=== PATIENT | male | born 1975 | race Caucasian/White ===

== ENCOUNTER 2020-11-05 07:48 | Inpatient (IN) | payer MEDICAID, SELFPAY ==
[2020-11-05] VITALS (17 sets, daily range): BP systolic 126–171; BP diastolic 66–97; PULSE 56–80; RESP 8–20; TEMP 35.7–36.6; O2SAT 97–100; BMI 22.8
--- NOTE | ~2020-11-05 | XR_ITS ---
XR chest 2V DATE: 11/05/2020 08:18 INDICATION: Midsternal chest pain, acute onset. Anxiety. TECHNIQUE: PA and lateral views COMPARISON: None FINDINGS: Normal heart size. No hilar or mediastinal enlargement. Azygos lobe, normal variant. No pulmonary infiltrate or consolidation, pleural effusion or pulmonary vascular congestion or pneumo thorax is detected. Included skeletal structures are unremarkable. IMPRESSION: No active cardiopulmonary disease Reviewed, dictated and finalized at location A.
--- NOTE | 2020-11-05 07:54 | ED.CHESTPAIN ---
HPI - Chest Pain General Chief Complaint: Chest Pain Stated Complaint: CP History of Present Illness HPI narrative: Substernal chest pain radiating to bilateral arms, back, and neck. Associated with SOB and diaphoresis. Given aspirin and nitroglycerin prior. Pain nearly resolved on arrival here. Related Data Home Medications Medication Instructions Recorded Confirmed losartan 50 mg PO DAILY 11/05/20 11/05/20 sodium chloride 1 g PO DAILY 11/05/20 11/05/20 Allergies Allergy/AdvReac Type Severity Reaction Status Date / Time No Known Allergies Allergy Verified 11/05/20 08:08 Review of Systems Review of Systems: All systems reviewed & are unremarkable except as noted in HPI and below Constitutional: Constitutional: Reports chills and Denies fever(s) ENT: Reports dizziness Cardiovascular: Cardiovascular: Reports as per HPI Respiratory: Respiratory: Reports as per HPI Gastrointestinal: Gastrointestinal: Reports nausea Psychiatric: Psychiatric: Reports anxiety [facility] Past Medical History Medical History HTN (hypertension), benign Tobacco abuse Family History Family History Other Hypertension Social History Social History Smoking status: Current every day smoker Spiritual care concerns: No Exam Const: General: healthy appearing, no acute distress and alert Orientation/consciousness: patient oriented x3 HENMT: Head: normal to inspection Neck: Neck: normal visual inspection and no lymphadenopathy Chest: Chest palpation & inspection: no tenderness Resp: Effort & Inspection: normal respiratory effort Auscultation: clear to auscultation bilaterally, no rales, no rhonchi and no wheezes Cardio: Jugular venous distension: no JVD Rate: regular rate Rhythm: regular rhythm Heart sounds: no murmurs GI: Inspection: non-distended GI Palp: Yes Soft to palpation and No Tenderness to palpation present (GI) Skin: General skin exam: normal color Neuro: General: patient oriented x3 and moves all extremities Speech: normal speech Extrem: General: no edema Psych: Appearance: well kempt Affect: normal affect Course Vital Signs Vital signs: Vital Signs Temperature 36.6 C 11/05/20 07:47 Pulse Rate 80 11/05/20 07:47 Respiratory Rate 14 11/05/20 07:47 Blood Pressure 150/88 H 11/05/20 07:47 Pulse Oximetry 98 11/05/20 07:47 Temperature 35.9 C L 11/05/20 17:39 Pulse Rate 67 11/05/20 18:00 Respiratory Rate 16 11/05/20 17:39 Blood Pressure 162/71 H 11/05/20 17:39 Pulse Oximetry 100 11/05/20 17:39 MDM - Chest Pain MDM Narrative Medical decision making narrative: Initial EKG shows peaked t-waves. Could be due to ischemia, but not specific. Troponin turned positive at 3 hours. Patient discussed with cardiology. They will accept the admission. He continues to be pain free, so I will hold off on anticoagulation for now. Differential Diagnosis Differential diagnosis: Likely other (NSTEMI, ) Medical Records Data Attestation: I reviewed the patient's medical records. Lab Data Attestation: I reviewed the patient's lab results. Result diagrams: 11/05/20 08:10 11/05/20 08:10 Labs: Lab Results 11/05/20 11/05/20 11/05/20 Range/Units 08:09 08:10 08:10 WBC 6.3 (4.5-10.0) K/mm3 RBC 5.69 (4.6-6.20) M/mm3 Hgb 17.7 (14.0-18.0) g/dL Hct 52.7 H (42.0-52.0) % MCV 92.6 (80-100) fl MCH 31.1 (26-34) pg MCHC 33.6 (32-36) g/dl RDW 13.4 (11.5-14.5) % Plt Count 159 (150-375) k/mm3 MPV 10.2 (7.4-10.4) fl Immature Gran % (Auto) 0.3 (0-0.5) % Neut % (Auto) 62.0 (45.5-73.1) % Lymph % (Auto) 23.0 (18.3-44.2) % [place] % (Auto) 10.9 H (2.6-8.5) % Eos % (Auto) 3.2 (0-4.4) % Baso % (Auto) 0.6 (0.2-1.2) % L
[2020-11-05] MEDS: SODIUM CHLORIDE 0.9% IV 1,000 ML 999 ML IV CONT (08:25)
[2020-11-05 08:38] LABS: Prothrombin Time 12.7 Seconds (11.1-14.7)
[2020-11-05 08:39] LABS: Partial Thromboplastin Time 27.6 SECONDS (22.3-36.8)
[2020-11-05 08:40] LABS: Alanine Aminotransferase 26 U/L (4-50); Albumin Level 4.2 g/dL (3.5-5.1); Alkaline Phosphatase 67 U/L (38-126); Anion Gap 10 mmol/L (8-16); Aspartate Amino Transferase 25 U/L (17-59); Basophils Percent Auto 0.6 % (0.2-1.2); Bilirubin,Total 0.8 mg/dL (0.2-1.3); Blood Urea Nitrogen 10 mg/dL (9-20); Calcium 8.8 mg/dL (8.4-10.2); Carbon Dioxide 20 mmol/L (22-30); Chloride 103 mmol/L (98-107); Eosinophils Absolute Auto 0.2 K/mm3 (0-0.3); Eosinophils Percent Auto 3.2 % (0-4.4); Estimated CRCL calculation 114 ml/min; Estimated Glomerular Filt Rate > 60; Glucose 110 mg/dL (65-110); Hematocrit 52.7 % (42.0-52.0); Hemoglobin 17.7 g/dL (14.0-18.0); Immature Granulocyte Absolute 0.02 K/mm3 (0.00-0.031); Immature Granulocyte Percent A 0.3 % (0-0.5); Lymphocytes Absolute Auto 1.45 K/mm3 (0.9-3.2); Magnesium 2.1 mg/dL (1.6-2.3); Mean Corpuscular HGB Conc 33.6 g/dl (32-36); Mean Corpuscular Hemoglobin 31.1 pg (26-34); Mean Corpuscular Volume 92.6 fl (80-100); Mean Platelet Volume 10.2 fl (7.4-10.4); Monocytes Absolute Auto 0.7 K/mm3 (0.1-0.6); Monocytes Percent Auto 10.9 % (2.6-8.5); Neutrophils Absolute Auto 3.9 K/mm3 (1.3-6.7); Platelet Count Result 159 k/mm3 (150-375); Potassium 3.5 mmol/L (3.4-5.0); Red Blood Count 5.69 M/mm3 (4.6-6.20); Red Cell Distribution Width 13.4 % (11.5-14.5); Sodium 133 mmol/L (137-145); White Blood Count 6.3 K/mm3 (4.5-10.0)
--- NOTE | 2020-11-05 08:45 | ECG_ITS ---
Measurements Intervals [place] Rate: 88 P: 57 RI: 148 QRS: 31 QRSD: 106 T: 50 QT: 388 QTc: 471 Interpretive Statements SINUS RHYTHM POSSIBLE LEFT ATRIAL ENLARGEMENT POSSIBLE LEFT VENTRICULAR HYPERTROPHY BORDERLINE ECG Electronically Signed On 11-05-2020 9:02:52 CDT by Mark Powell D.O.
[2020-11-05 08:46] LABS: Troponin I < 0.012 ng/mL (0.000-0.034)
--- NOTE | 2020-11-05 09:02 | ECG_ITS ---
Measurements Intervals [place] Rate: 64 P: 22 SD: 151 QRS: 15 QRSD: 106 T: 21 QT: 433 QTc: 449 Interpretive Statements SINUS RHYTHM POSSIBLE LEFT VENTRICULAR HYPERTROPHY BORDERLINE R WAVE PROGRESSION, ANTERIOR LEADS BORDERLINE ECG Electronically Signed On 11-05-2020 9:40:24 CDT by Mark Powell D.O.
[2020-11-05 11:35] LABS: Troponin I 0.081 ng/mL (0.000-0.034)
--- NOTE | 2020-11-05 13:47 | PC.NURSE ---
This patient, Jose Pereira, was admitted to IMU Room 205-02. Patient/family oriented to hospital policies and general routines including ID bracelet, bed and alarms, visiting hours, pain management, procedures, bathroom and other care routines, personal items, smoking policy, room service/diet, and visiting hours. Information on how to activate the Rapid Response Team has been discussed. Patient/Family are encouraged to report perceived risks to care and to ask questions if they do not understand what they are told or what they should do.
[2020-11-05 15:02] LABS: Troponin I 0.103 ng/mL (0.000-0.034)
--- NOTE | 2020-11-05 15:16 | ECG_ITS ---
Measurements Intervals [place] Rate: 65 P: 19 [place]: 148 QRS: 22 QRSD: 106 T: 12 QT: 421 QTc: 439 Interpretive Statements SINUS RHYTHM MINIMAL Q WAVES- INFERIOR LEADS BORDERLINE ECG Electronically Signed On 11-05-2020 19:33:34 CDT by Mark Powell D.O.
--- NOTE | 2020-11-05 15:17 | ECHO_ITS ---
Patient Info Name: Jose Pereira Age: 45 years : 1975 Gender: Male Ht: 73 in Wt: 173 lbs BSA: 2.01 m2 BP: 166 / 66 mmHg Heart Rhythm: Sinus Rhythm Technical Quality: Fair Exam Date: 11/05/2020 3:47 PM Exam Location: [facility] Pulmonary Patient Status: Inpatient Admit Date: 11/05/2020 Staff Ordering Physician: Truong Syed MD Gas Pump Attendant: Terri Escobedo RDCS Attending Provider: Truong Syed MD Referring Physician: Yahaira GUERRERO; Exam Type: CA echo doppler color flow Study Info Indications R07.89 - Other chest pain Complete two-dimensional, color flow and Doppler transthoracic echocardiogram is performed. Summary 1. Complete two-dimensional, color flow and Doppler transthoracic echocardiogram is performed. 2. Left ventricular chamber dimension is normal. 3. Left ventricular systolic function is normal, estimated at 60-65%. 4. There is mildly increased left ventricular wall thickness. 5. The left ventricular diastolic function is grade II diastolic dysfunction. 6. There is no aortic valve stenosis. 7. There is at least mild, somewhat eccentric aortic valve regurgitation with color flow turbulence which cannot be further characterized. 8. There is mild aortic valve sclerosis. 9. There is mild mitral valve regurgitation. Left Ventricle Left ventricular chamber dimension is normal. Left ventricular systolic function is normal, estimated at 60-65%. There is mildly increased left ventricular wall thickness. The left ventricular diastolic function is grade II diastolic dysfunction. Right Ventricle Right ventricular chamber dimension is normal. Right ventricular systolic function is normal. Left Atria Left atrial chamber dimension is mildly enlarged. Right Atria Right atrial chamber dimension is mildly enlarged. Aortic Valve The aortic valve is not well visualized. There is mild aortic valve sclerosis. There is no aortic valve stenosis. There is at least mild, somewhat eccentric aortic valve regurgitation with color flow turbulence which cannot be further characterized. Pulmonic Valve The pulmonic valve is not well visualized. Mitral Valve The mitral valve has normal leaflets. There is mild mitral valve regurgitation. Tricuspid Valve The tricuspid valve leaflets are normal. There is trace tricuspid valve regurgitation. No pulmonary hypertension, estimated pulmonary arterial systolic pressure is 24 mmHg. Pericardium/Pleural The pericardium appears normal. There is no pericardial effusion. Inferior Vena Cava Normal inferior vena cava with >50% collapse upon inspiration consistent with normal right atrial pressure, 5 mmHg. Aorta The aortic root size at the sinus of Valsalva is normal. Left Ventricular Outflow Tract Name Value Normal LVOT 2D LVOT Diameter 2.6 cm LVOT Doppler LVOT Peak Gradient 12 mmHg LVOT Mean Gradient 7 mmHg LVOT VTI 35 cm LVOT VTI/AV VTI Ratio 0.8 LVOT Stroke Volume 188 ml LVOT
--- NOTE | 2020-11-05 15:36 | PM.IMHP ---
H&P: HPI History of Present Illness Date/Time: Date of service: 11/05/20 15:36 Cardiology History and Physical Chief Complaint: Chest pain Narrative: Patient is a very pleasant 45-year-old male with a past medical history significant for hypertension and tobacco abuse who states he in his usual state of health when he woke early this morning with significant substernal chest pressure described as someone sitting on his chest. Chest pain radiated to bilateral upper back and into his shoulders and down his arms with heaviness. He admitted to shortness of breath, fatigue, diaphoresis. He states after waking he woke his dog and noted the symptoms persisted and after arriving back home shortly symptoms worsened and realized something was very wrong. He initially was hoping he would may be pulled a muscle as he was engage in strenuous activity lifting heavy objects the night before. He went to bed feeling quite well and denies any shortness of breath or chest pain at any time recently. He has been very active playing golf and baseball without any concerns. He states he was admitted in [place], [place] 2 weeks ago for symptomatic hyponatremia dizziness. Symptoms resolved with conservative therapy. He states he was playing golf drinking beer drinking water which they attributed to his hyponatremia. He has been compliant with medications. He denies bright red blood per rectum, melena, head injury, falls, near-syncope, syncope or palpitations. Denies fevers, chills recent sick contacts. After summoning EMS he was given 1 spray of sublingual nitroglycerin with prompt resolution of his chest pain without recurrence. EKG revealed subtle nonspecific EKG changes inferiorly. Serial troponins elevated less than 0.012, 0.081 and 0.103. Patient currently states he feels ?right as rain.? Review of Systems Review of Systems: All systems reviewed & are unremarkable except as noted in HPI and below Constitutional: Constitutional: Reports as per HPI and Reports no additional constitutional complaints Eyes: Eyes: Reports as per HPI and Reports no additional eye complaints ENT: Reports system reviewed and no additional complaints, except as documented and Reports as per HPI Cardiovascular: Cardiovascular: Reports as per HPI, Reports no additional cardiovascular complaints, Reports chest pain, Reports diaphoresis, Denies pedal edema, Denies leg edema, Reports lightheadedness and Denies palpitations Respiratory: Respiratory: Reports as per HPI, Reports no additional respiratory complaints, Denies chest congestion, Denies cough, Denies hemoptysis, Reports dyspnea on exertion and Denies wheezing Gastrointestinal: Gastrointestinal: Reports as per HPI, Reports no additional gastrointestinal complaints, Denies abdominal pain, Denies melena, Denies bloating, Denies hematochezia, Reports nausea and Denies vomiting Genitourinary: Genitourinary: Reports no additional male genitourinary complaints and Reports as per HPI Musculoskeletal: Musculoskeletal: Reports no additional musculoskeletal complaints, Reports as per HPI and Reports neck pain Integumentary/Breasts: Skin/Breast: Reports system reviewed and no additional complaints, except as docu and Reports as per HPI Neurologic: Reports system reviewed and no additional complaints, except as documented and Reports as per HPI Psychiatric: Psychiatric: Reports no additional psychiatric complaints and Reports as per HPI Endocrine: Endocrine: Reports no additional endocrine complaints and Reports as per HPI Hematologic/Lymphatic: Hematologic/Lymphatic: Reports no additional hematologic/lymphatic complaints and Reports as per HPI Allergic/Immunologic: Allergic/Immunologic: Reports no additional allergic/immunologic complaints and Reports as per HPI [facility] Past Medical History Medical History HTN (hypertension), benign Tobacco abuse Family History Family History (R
[2020-11-05 17:17] LABS: Cholesterol 153 mg/dL (0-200); HDL Direct 31 mg/dL; Triglycerides 154 mg/dL (<150)
[2020-11-05 17:28] LABS: LDL Cholesterol Direct 80 mg/dL
[2020-11-05] MEDS: ENOXAPARIN 80 MG/0.8 ML SYRINGE SUB-Q (17:50)
[2020-11-06] VITALS (15 sets, daily range): BP systolic 139–186; BP diastolic 69–79; PULSE 53–75; RESP 12–20; TEMP 35.8–36.6; O2SAT 98–100
--- NOTE | 2020-11-06 00:15 | ECG_ITS ---
Measurements Intervals [place] Rate: 54 P: 22 VT: 148 QRS: 24 QRSD: 101 T: 22 QT: 477 QTc: 456 Interpretive Statements SINUS BRADYCARDIA BASELINE WANDER- I, III BORDERLINE ECG Electronically Signed On 11-07-2020 10:55:58 CDT by Mark Powell D.O.
[2020-11-06] MEDS: NITROGLYCERIN SL 0.4 MG TABLET SUBLINGUAL (00:27)
[2020-11-06 05:20] LABS: Hematocrit 49.1 % (42.0-52.0); Mean Corpuscular HGB Conc 34.6 g/dl (32-36); Mean Corpuscular Hemoglobin 31.5 pg (26-34); Mean Corpuscular Volume 90.9 fl (80-100); Platelet Count Result 159 k/mm3 (150-375); Red Cell Distribution Width 13.2 % (11.5-14.5); White Blood Count 5.9 K/mm3 (4.5-10.0)
[2020-11-06 05:24] LABS: Anion Gap 5 mmol/L (8-16); Blood Urea Nitrogen 9 mg/dL (9-20); Calcium 8.6 mg/dL (8.4-10.2); Carbon Dioxide 22 mmol/L (22-30); Chloride 109 mmol/L (98-107); Estimated CRCL calculation 114 ml/min; Estimated Glomerular Filt Rate > 60; Glucose 94 mg/dL (65-110); Potassium 4.2 mmol/L (3.4-5.0); Sodium 136 mmol/L (137-145)
--- NOTE | 2020-11-06 07:00 | WPDMODSED ---
Moderate Sedation Note-Pt Data Patient Data Allergies Allergy/AdvReac Type Severity Reaction Status Date / Time No Known Allergies Allergy Verified 11/05/20 08:08 Home Medications Medication Instructions Recorded Confirmed Type losartan 50 mg PO DAILY 11/05/20 11/05/20 History sodium chloride 1 g PO DAILY 11/05/20 11/05/20 History Current Medications: Active Medications Aspirin (Aspirin 81 Mg Chewable Tablet) 81 mg PO DAILY@0800 LASHANDA Atorvastatin Calcium (Atorvastatin 40 Mg Tablet) 80 mg PO DAILY LASHANDA Nitroglycerin (Nitroglycerin Sl 0.4 Mg Tablet) 0.4 mg SUBLINGUAL Q5MIN PRN PRN Reason: Chest Pain Last Admin: 11/06/20 00:27 Dose: 0.4 mg Documented by: Sedation/Anesthesia: No previous sedation/anesthesia problems (including family history). [facility] Past Medical History Medical History HTN (hypertension), benign Tobacco abuse Family History Family History Other Hypertension Social History Social History Smoking status: Current every day smoker Spiritual care concerns: No Mod Sed Physical Exam Physical Exam Pre Procedural Exam: Normal: Appearance, Eyes, Ears, Nose, Neck, Throat, Airway, Lungs, Heart Size, Heart Rate, Heart Rhythm, Neuro Exam, Abdomen, Liver, Kidneys, Spleen, Breasts, Genitalia, Extremities and Skin Hours since solid foods: 8 Hours since liquid intake: 8 Mallampati Classification: class 1 Internal Medicine - PN: Obj Da Vital Signs Vital Signs: Vital Signs - 24 hr 11/05/20 08:23 11/05/20 09:02 11/05/20 10:02 Temperature Pulse Rate 74 67 73 Respiratory Rate 17 14 20 Blood Pressure 126/97 H 171/82 H 165/82 H Pulse Oximetry 98 99 100 11/05/20 11:01 11/05/20 12:00 11/05/20 13:35 Temperature Pulse Rate 70 63 60 Respiratory Rate 19 16 16 Blood Pressure 171/85 H 160/79 H 159/85 H Pulse Oximetry 100 100 97 11/05/20 14:00 11/05/20 14:25 11/05/20 16:00 Temperature 35.7 C L Pulse Rate 75 56 L 60 Respiratory Rate 20 Blood Pressure 166/66 H Pulse Oximetry 100 11/05/20 17:39 11/05/20 18:00 11/05/20 20:00 Temperature 35.9 C L 36.0 C L Pulse Rate 67 67 71 Respiratory Rate 16 18 Blood Pressure 162/71 H 158/73 H Pulse Oximetry 100 98 11/05/20 20:43 11/05/20 21:59 11/05/20 23:52 Temperature Pulse Rate 61 73 60 Respiratory Rate 18 Blood Pressure Pulse Oximetry 99 99 11/06/20 00:00 11/06/20 00:25 11/06/20 00:32 Temperature 36.6 C Pulse Rate 56 L 58 L 59 L Respiratory Rate 18 16 16 Blood Pressure 167/75 H 169/76 H 139/79 Pulse Oximetry 99 98 99 11/06/20 01:32 11/06/20 04:00 11/06/20 05:52 Temperature 36.6 C Pulse Rate 62 56 L 56 L Respiratory Rate 18 Blood Pressure 162/75 H Pulse Oximetry 99 Intake/Output Intake/Output: Intake & Output 11/03/20 11/04/20 11/05/20 11/06/20 23:59 23:59 23:59 23:59 Intake Total 1540 222 Output Total 480 Balance 1540 -258 Meds/Results Medications: Active Medications Generic Name Dose Route Start Last Admin Trade Name Freq PRN Reason Stop Dose Admin Aspirin 81 mg 11/06/20 08:00 Aspirin 81 Mg Chewable Tablet PO DAILY@0800 [facility] Atorvastatin Calcium 80 mg 11/06/20 17:00 Atorvastatin 40 Mg Tablet PO DAILY [facility] Nitroglycerin 0.4 mg 11/05/20 18:52 11/06/20 00:27 Nitroglycerin Sl 0.4 Mg Tablet SUBLINGUAL 0.4 mg Q5MIN PRN Administration Chest Pain Radiology Results: ITS Impressions Chest X-Ray 11/05/20 08:23 IMPRESSION: No active cardiopulmonary disease Labs CBC & Chem 7: 11/06/20 04:35 11/06/20 04:36 Labs: Laboratory Results - last 24 hr 11/05/20 11/05/20 11/05/20 08:09 08:10 08:10 WBC 6.3 RBC 5.69 Hgb 17.7 Hct 52.7 H MCV 92.6 MCH 31.1 MCHC 33.6 RDW 13.4 Plt Count 159 M
--- NOTE | 2020-11-06 07:00 | WPDHPUPDATE1 ---
History and Physical Update Update Date/Time: 11/06/20 0700am History and Physical has been reviewed, including an updated exam of the patient. There are NO changes in the patient's condition. Risks, benefits, and alternatives have been discussed and questions answered. Patient agrees to proceed with procedure.
--- NOTE | 2020-11-06 08:17 | WPDCARDPROC ---
Cardiac Cath Procedure Note Date of procedure:: 11/06/20 Performing physician:: Theresa Jiang MD Date of service 11/06/2020 Indication:: chest pain and elevated troponins Brief clinical history:: this is 45-year-old patient with past history of tobacco use and hypertension who presents to the hospital chest pain and was found to have minimally elevated troponins. He was brought into chemical laboratory chief to define coronary anatomy. Procedure Procedure performed:: 1-Moderate sedation that started at 7:34 a.m.and ended at 8:03 a.m. total duration 29 minutesusing 3mg of Versed and 50mcg fentanyl. The registered nurse was adrienne hull. 2-Selective left and right coronary angiogram. 3-Left heart catheterization with measurement of LVEDP and measurement of gradient across aortic valve. 4- LV angiogram. 5- ascending aorta angiogram. 6-Right common femoral arterial angiogram. 7-Deployment of 6 [place] Angio-Seal. Sedation/Medication given:: Moderate sedation. Access site:: Right common femoral artery. Estimated blood loss:: 10cc Procedure note:: After informed consent patient was brought in to chemical laboratory chief with the was draped and prepped in usual manner. Moderate sedation was given and the right groin was infiltrated using 1% lidocaine. Five [place] sheath was obtained using micropuncture needle and the modified Seldinger technique. Selective left coronary angiogram was done using JL4 catheter with the tip of the catheter placed in the left main coronary artery. Selective right coronary angiogram was done using AL1 catheter catheter with the tip of the catheter placed to the right coronary artery. before the AL1 we tried JR4 and WRP without success.After that 5 [place] pigtail catheter was advanced across the aortic valve into the left ventricle with measurement of LVEDP and measurement of gradient across aortic valve. LV angiogram was done. The ascending aorta angiogram was done as well. Right common femoral arterial angiogram was done. Then deployment 6 [place] Angio-Seal. Findings:: 1- left coronary artery is a large artery that divides into large LAD, large circumflex artery. Left main Has diffuse 10% stenosis. 2- left anterior descending artery is a large artery that runs and wraps around the apex. Has diffuse 10% stenosis at the ostium and proximally. Otherwise free of disease. Small diagonal 1-3 branches without significant disease and then medium size diagonal 4 branch without significant disease. 3- leftcircumflex artery is a large artery Without significant disease. 4- right coronary artery Has a high takeoff and anterior. No significant disease. It is dominant. 5- LVEDP was 10 mm Hg and no gradient across aortic valve. 6- LV angiogram shows ejection fraction estimation 55%. 7- Ascending aorta angiogram shows that the ascending aorta diameter is normal however there is severe aortic regurgitation. 8- opening arterial pressure was 160/60 and closing pressure was 150/60 7- right femoral artery angiogram shows no significant disease in the right common femoral artery. Conclusion:: 1- minimal coronary irregularities. 2- severe aortic regurgitation Assessment and Plan Additional Plan follow-up with Dr. Syed regarding aortic valve regurgitation.
--- NOTE | 2020-11-06 09:24 | PM.DS ---
DS: Admitting Diagnosis Admitting Diagnosis Chest pain DS: Discharge Diagnosis Discharge Diagnosis (1) NSTEMI (non-ST elevated myocardial infarction): Code(s): I21.4 - Non-ST elevation (NSTEMI) myocardial infarction Status: Acute Assessment and Plan: Continue Atorvastatin, reduce to 40mg qhs, ASA 81 mg daily. Smoking cessation, lifestyle modification. As patient was hospitalized 2 weeks ago although brief and has been active without debilitation cannot entirely exclude pulmonary embolism is possible explanation for recurrent chest pain and elevated troponin. Clinically, it seems unlikely he has pulmonary embolism as he has not been hypoxic or tachycardic. He has no lower extremity edema, palpable cords or extremity pain. Nonetheless, explanation for recurrent chest pain remains unclear unless he has transient embolism which spontaneously lysed not appreciable on coronary angiography. Will check D-dimer stat. If negative no further workup indicated. If positive while we discussed this is not confirmatory of a thromboembolic event this cannot be excluded we discussed further evaluation with CT angiography of the chest. Patient received a fair amount of contrast this morning so I would like to avoid if possible yet clarification important at this time. Continue to hydrate post cardiac catheterization and of CT angiogram of the chest PE protocol. Patient verbalized understanding and agreed with plan of care. Further recommendation to follow. If negative as above patient will be discharged home in stable improved condition follow up as an outpatient with [facility] to followed thereafter. (2) HTN (hypertension), benign: Code(s): I10 - Essential (primary) hypertension Status: Acute Assessment and Plan: Continue Losartan 50mg daily. (3) Tobacco abuse: Code(s): Z72.0 - Tobacco use Status: Acute Assessment and Plan: Smoking cessation counseling performed at length and its critical importance. Offered patient smoking cessation aid including a Nicotine patch while hospitalized at this time he states he is comfortable does not require. (4) Aortic regurgitation: Code(s): I35.1 - Nonrheumatic aortic (valve) insufficiency Status: Acute Assessment and Plan: Eccentric at least mild by echo severe by aortogram with coronary angiography. Aortic valve not well visualized on 2D echocardiogram. Outpatient transesophageal echocardiogram for further clarification. Discussed etiology including bicuspid aortic valve as a likely explanation but remains unclear. Patient otherwise asymptomatic at this time. Discussed at length management including repair and/or very likely replacement of the aortic valve depending on pathology identified. Discussed open surgical replacement versus TAVR options of mechanical versus tissue and relative limitation with regards to durability, systemic anticoagulation lifelong with mechanical valve. Patient verbalized understanding. All questions answered to his satisfaction. Further clarification needed which will be pursued as an outpatient. (5) CAD (coronary artery disease): Code(s): I25.10 - Atherosclerotic heart disease of [place] coronary artery without angina pectoris Status: Acute Assessment and Plan: Minimal nonobstructive disease 10% stenosis ostial/proximal LAD. Aspirin, statin therapy. DS: Summary Hospital Course Reason for hospitalization: Chest pain Hospital Course: Patient presented to the ED with complaint of central chest pain/pressure. Mildly elevated troponin, no acute ischemic changes on EKG. Due to his symptoms and elevated troponin it was recommended that he undergo a cardiac catheterization. He underwent a left heart catheterization this morning which did not reveal any significant coronary disease, but it was noted that he has severe aortic valve regurgitation. Recommended to follow up with Dr. Syed as an outpatien
[2020-11-06] MEDS: ASPIRIN 81 MG CHEWABLE TABLET PO (10:28)
[2020-11-06] MEDS: SODIUM CHLORIDE 1 GM TABLET PO (10:28)
[2020-11-06] MEDS: SODIUM CHLORIDE 0.9% IV 1,000 ML 125 ML IV CONT (10:29)
[2020-11-06] MEDS: LOSARTAN POTASSIUM 50 MG TABLET PO (10:29)
--- NOTE | 2020-11-06 11:22 | PM.PNCARD ---
Progress Note: A&P Assessment and Plan (1) NSTEMI (non-ST elevated myocardial infarction): Code(s): I21.4 - Non-ST elevation (NSTEMI) myocardial infarction Status: Acute Assessment and Plan: Continue Atorvastatin, reduce to 40mg qhs, ASA 81 mg daily. Smoking cessation, lifestyle modification. As patient was hospitalized 2 weeks ago although brief and has been active without debilitation cannot entirely exclude pulmonary embolism is possible explanation for recurrent chest pain and elevated troponin. Clinically, it seems unlikely he has pulmonary embolism as he has not been hypoxic or tachycardic. He has no lower extremity edema, palpable cords or extremity pain. Nonetheless, explanation for recurrent chest pain remains unclear unless he has transient embolism which spontaneously lysed not appreciable on coronary angiography. Will check D-dimer stat. If negative no further workup indicated. If positive while we discussed this is not confirmatory of a thromboembolic event this cannot be excluded we discussed further evaluation with CT angiography of the chest. Patient received a fair amount of contrast this morning so I would like to avoid if possible yet clarification important at this time. Continue to hydrate post cardiac catheterization and of CT angiogram of the chest PE protocol. Patient verbalized understanding and agreed with plan of care. Further recommendation to follow. If negative as above patient will be discharged home in stable improved condition follow up as an outpatient with [facility] to followed thereafter. (2) Aortic regurgitation: Code(s): I35.1 - Nonrheumatic aortic (valve) insufficiency Status: Acute Assessment and Plan: Eccentric at least mild by echo severe by aortogram with coronary angiography. Aortic valve not well visualized on 2D echocardiogram. Outpatient transesophageal echocardiogram for further clarification. Discussed etiology including bicuspid aortic valve as a likely explanation but remains unclear. Patient otherwise asymptomatic at this time. Discussed at length management including repair and/or very likely replacement of the aortic valve depending on pathology identified. Discussed open surgical replacement versus TAVR options of mechanical versus tissue and relative limitation with regards to durability, systemic anticoagulation lifelong with mechanical valve. Patient verbalized understanding. All questions answered to his satisfaction. Further clarification needed which will be pursued as an outpatient. (3) CAD (coronary artery disease): Code(s): I25.10 - Atherosclerotic heart disease of [place] coronary artery without angina pectoris Status: Acute Assessment and Plan: Minimal nonobstructive disease 10% stenosis ostial/proximal LAD. Aspirin, statin therapy. (4) HTN (hypertension), benign: Code(s): I10 - Essential (primary) hypertension Status: Acute Assessment and Plan: Continue Losartan 50mg daily. (5) Tobacco abuse: Code(s): Z72.0 - Tobacco use Status: Acute Assessment and Plan: Smoking cessation counseling performed at length and its critical importance. Offered patient smoking cessation aid including a Nicotine patch while hospitalized at this time he states he is comfortable does not require. Additional Plan follow-up with Dr. Syed regarding aortic valve regurgitation. Subjective Date/time seen: Date of service: 11/06/20 11:22 Follow-up for chest pain, elevated troponin, aortic regurgitation Underwent left heart catheterization this morning which revealed minimal nonobstructive CAD 10% diffuse stenosis proximally in the LAD. Had brief chest pain last night resolved with sublingual nitroglycerin once again. Severe aortic regurgitation noted on aortogram. Review of Systems Review of Systems: All systems reviewed & are unremarkable except as noted in HPI and below Constitutional: Constitutio
[2020-11-06 12:55] LABS: D Dimer 0.27 ug/mL (<0.48)
--- NOTE | 2020-11-06 14:35 | PC.NURSE ---
Patient discharged to home at 1430. Education was provided on home meds and MD instructions. Patient had no further questions at this time.
== END 2020-11-06 14:30 | disposition home or self-care (01) | DRG 190 ==
LOC: ANHED 08:23 → ANHIMU 15:09
PROVIDERS: Admitting Provider Internal Medicine Cardiovascular Disease; Emergency Provider Emergency Medicine; Visit Provider Internal Medicine Cardiovascular Disease
PROC: 4A023N7 Measurement of Cardiac Sampling and Pressure, Left Heart, Percutaneous Approach (ICD-10-PCS; CPT 93452; principal; 2020-11-06 07:30)
PROC: 4A023N7 Measurement of Cardiac Sampling and Pressure, Left Heart, Percutaneous Approach (ICD-10-PCS; 2020-11-06 07:30)
DX: I21.4 Non-ST elevation (NSTEMI) myocardial infarction (principal); I25.10 Atherosclerotic heart disease of native coronary artery without angina pectoris; I35.1 Nonrheumatic aortic (valve) insufficiency; I10 Essential (primary) hypertension; F17.200 Nicotine dependence, unspecified, uncomplicated; Z79.899 Other long term (current) drug therapy
CPT/HCPCS: 36415; 71046; 80048; 80053; 80061; 83735; 84484; 85025; 85027; 85380; 85610; 85730; 93005; 93306; 93458; 96360; 99291; A9270; C1760; C1887; C1894; G0269; J1644; J1650; J2250; J3010; J7030; J7040

== ENCOUNTER → 2020-12-12 01:08 | Outpatient (CLI) | payer OTHER, SELFPAY ==
[2020-12-12 18:08] LABS: SARS-CoV-2 RNA PCR Negative
== END ==
PROVIDERS: Visit Provider Internal Medicine Cardiovascular Disease
DX: Z01.812 Encounter for preprocedural laboratory examination (principal); Z20.822 Contact with and (suspected) exposure to COVID-19
CPT/HCPCS: C9803; U0003; U0005

== ENCOUNTER 2020-12-16 01:42 | Day surgery (SDC) | payer OTHER, SELFPAY ==
[2020-12-16] VITALS (11 sets, daily range): BP systolic 148–192; BP diastolic 83–110; PULSE 75–104; RESP 12–18; TEMP 36.1; O2SAT 97–100; BMI 23.8
--- NOTE | 2020-12-16 11:00 | WPDHPUPDATE1 ---
History and Physical Update Update Date/Time: 12/16/20 11:00 History and Physical has been reviewed, including an updated exam of the patient. There are NO changes in the patient's condition. Risks, benefits, and alternatives have been discussed and questions answered. Patient agrees to proceed with procedure.
--- NOTE | 2020-12-16 11:00 | WPDMODSED ---
Moderate Sedation Note-Pt Data Patient Data Diagnosis: Severe aortic regurgitation Present Complaint: none Procedure to be performed/Plan: transesophageal echocardiogram Allergies Allergy/AdvReac Type Severity Reaction Status Date / Time No Known Allergies Allergy Verified 11/13/20 15:39 Home Medications Medication Instructions Recorded Confirmed Type losartan 50 mg PO DAILY 11/05/20 12/16/20 History sodium chloride 1 g PO DAILY 11/05/20 12/16/20 History aspirin [Children's Aspirin] 81 mg PO DAILY@0800 30 Days #30 11/06/20 12/16/20 Rx tablet atorvastatin 40 mg PO DAILY #30 tablet 11/06/20 12/16/20 Rx Current Medications: Active Medications Lidocaine HCl (Lidocaine Hcl 2% Visc Soln 15 Ml Udc) 20 ml PO ONCE ONE Stop: 12/16/20 11:31 Sedation/Anesthesia: No previous sedation/anesthesia problems (including family history). [facility] Past Medical History Medical History Aortic regurgitation CAD (coronary artery disease) HTN (hypertension), benign Tobacco abuse Family History Family History Other Hypertension Social History Social History Smoking status: Current every day smoker Spiritual care concerns: No Mod Sed Physical Exam Physical Exam Pre Procedural Exam: Normal: Appearance, Eyes, Ears, Nose, Neck ( supple, normal range of motion), Throat ( posterior hypopharynx clear, nonerythematous), Airway ( normal anatomy, no obstruction ), Lungs ( clear to auscultation bilaterally), Heart Size, Heart Rate, Heart Rhythm ( diastolic murmur), Neuro Exam, Abdomen, Liver, Extremities and Skin Hours since solid foods: 12 Hours since liquid intake: 12 Mallampati Classification: class III Internal Medicine - PN: Obj Da Vital Signs Vital Signs: Vital Signs - 24 hr 12/16/20 10:35 Temperature 36.1 C L Pulse Rate 76 Respiratory Rate 18 Blood Pressure 171/93 H Pulse Oximetry 100 Meds/Results Medications: Active Medications Generic Name Dose Route Start Last Admin Trade Name Freq PRN Reason Stop Dose Admin Lidocaine HCl 20 ml 12/16/20 11:30 Lidocaine Hcl 2% Visc Soln 15 Ml Udc PO 12/16/20 11:31 ONCE ONE ASA Classification/Sedation ASA Classification/Sedation ASA Class: III Emergent: No Risks: Risks, benefits and alternatives explained and patient/family accepted plan for sedation. Patient re-evaluated immediately prior to sedation.
--- NOTE | 2020-12-16 11:46 | WPDTEECHO ---
[facility] TransEsophageal Echocardiogram Date of procedure: 12/16/20 Procedure Type: transesophageal echocardiogram Diagnosis: severe aortic regurgitation Indications: severe aortic regurgitation Image Quality: acceptable Findings: Brief history present illness: Patient is a pleasant 45-year-old male who presented with fatigue shortness of breath with mild troponin elevation who underwent left heart catheterization which revealed mild nonobstructive CAD and incidental discovery of highly eccentric aortic regurgitation noted to be severe on coronary angiography referred for transesophageal echocardiogram for further evaluation. Procedure in detail: After verbal and written informed consent was obtained the patient risks, benefits, and alternatives explained in detail the patient agreed to proceed with the plan of care as outlined above. The patient was evaluated at bedside in the [facility] procedure room. The posterior oropharynx, neck, and jaw angle all within normal limits on examination. Lungs were clear to auscultation. See pre-sedation note for further details The patient was then placed in the appropriate 30 to 45 degree angle supine position at a slight left lateral decubitus position. Patient was monitored throughout the study with telemetry, oxygen saturation, end-tidal CO2 monitoring, blood pressure, heart rate, and respirations. The posterior hypopharynx was then locally anesthetized using repeated administration of Hurricaine spray as well as gargled viscous lidocaine. After local anesthetic of the posterior hypopharynx was achieved and the oral bite block placed, moderate sedation was administered. After confirmation of adequate moderate sedation, the transesophageal echocardiogram probe was advanced through the oral bite block into the posterior hypopharynx and into the esophagus easily and without complication. Multiple, multiplanar echocardiographic images were obtained in multiple standard re- projections. Pulsed wave, continuous-wave, and color-flow Doppler were utilized in conjunction with this study. At the conclusion of the study, the transesophageal echocardiogram probe was removed easily and without complication. The patient tolerated the procedure well without difficulty. Patient was in sinus rhythm throughout the study. Moderate Sedation/Anesthesia administration: Patient reports no prior problems with sedation/anesthesia. Please see pre-sedation noted for physical examination documentation. As noted above, after adequate local anesthesia of the posterior hypopharynx was achieved, a total of 5 mg intravenous Versed and a total of 125 mcg intravenous Fentanyl in multiple divided doses was administered for moderate sedation. Sedation start time was 1107 and end time was 1138 for a total intra-service/procedure face-face time of 21 minutes. Sedation was administered by a qualified/certified observer Anabelle Martinez RN under my supervision with intra-procedure [id number] observation and management throughout the entirety of the procedure. There were no other issues or complications and patient tolerated the procedure well. See post-anesthesia documentation. FINDINGS: LEFT VENTRICLE: Size and systolic function were within normal limits without wall motion abnormalities with ejection fraction of 60-65%. RIGHT VENTRICLE: Size and systolic function within normal limits. LEFT ATRIUM: Normal size. RIGHT ATRIUM: Normal size. INTERATRIAL SEPTUM: Interatrial septum is anatomically normal without evidence of shunt with color-flow Doppler nor with injection of agitated saline with and without Valsalva. MITRAL VALVE: Mitral valve is anatomically normal with preserved leaflet excursion and mild regurgitation. AORTIC VALVE: The aortic valve was an anatomically normal 3 leaflet structure with mild sclerosis and thickening with preserved leaflet excursion. No mobile vegetation identified. Severe aortic regurgitation is appreciated extend
== END 2020-12-16 12:15 | disposition home or self-care (01) ==
PROVIDERS: Visit Provider Internal Medicine Cardiovascular Disease
PROC: (CPT 93312; principal; 2020-12-16 11:30)
DX: I35.1 Nonrheumatic aortic (valve) insufficiency (principal); I25.10 Atherosclerotic heart disease of native coronary artery without angina pectoris; I10 Essential (primary) hypertension; E78.5 Hyperlipidemia, unspecified; Z79.82 Long term (current) use of aspirin
CPT/HCPCS: 93312; 93320; 93325; J2250; J3010; J7040

== ENCOUNTER 2021-04-03 21:14 | Emergency (ER) | payer OTHER, SELFPAY ==
--- NOTE | ~2021-04-03 | CT_ITS ---
EXAMINATION: CTA chest PE abdomen pel DATE: 04/04/2021 11:18 WARP KNITTER INDICATION: Chest pain TECHNIQUE: Computed tomographic angiography (CTA) of the chest, abdomen, and pelvis was performed wit hout and with 100 mL Omnipaque-350 intravenous contrast. The dose-length product was 1374.36 mGy-cm. Maximum intensity projection 3D-reconstructions of the aorta and other arteries were constructed by rosemary martinez technologist on a separate workstation. Automated exposure control and iterative reconstruction te riccardo were employed. COMPARISON: None. FINDINGS: CHEST CTA: Study is limited due to motion artifact limiting evaluation for pulmonary embolism in segmental and s ubsegmental pulmonary arteries. No central pulmonary embolism. Small pericardial effusion. There are changes of aortic valve replacement. Status post median sternotomy for CABG. Moderate size hiatal her huma. There is emphysema. There are patchy groundglass opacities in the right upper lobe with more foc al consolidation in the right lower lobe, most likely pneumonia. No endobronchial lesions. No pneumot horax. ABDOMEN AND PELVIS CTA: Gallstones. Splenomegaly. The liver, pancreas, adrenal glands are unremarkable. There are bilateral r enal cysts. No hydronephrosis or renal stones identified. Small fat-containing right inguinal hernia. No abnormal pelvic masses or fluid collections. Nonobstructive bowel gas pattern. IMPRESSION: 1. Right upper and lower lobe airspace disease, compatible with pneumonia. 2: No large central pulmonary embolism. Evaluation of peripheral arteries limited by motion. 3: Cholelithiasis. 4: Splenomegaly. Reviewed, dictated and finalized at location A. KNITTER IMPRESSION: 1. Right upper and lower lobe airspace disease, compatible with pneumonia. 2: No large central pulmonary embolism. Evaluation of peripheral arteries limit ed by motion. 3: Cholelithiasis. 4: Splenomegaly.
[2021-04-03 21:21] VITALS: BP 192/104; PULSE 84; RESP 20; TEMP 36.4; O2SAT 97
[2021-04-03 21:31] VITALS: BP 166/101; PULSE 88; RESP 14; O2SAT 97
[2021-04-03] MEDS: ONDANSETRON INJ 4 MG/2 ML VIAL IV PUSH (21:45)
[2021-04-03] MEDS: HYDROmorphone HCL INJ (*CRX) 1 MG/ML SYR IV PUSH ×2 (21:45→23:34)
[2021-04-03] MEDS: SODIUM CHLORIDE 0.9% IV 1,000 ML 999 ML IV CONT (21:48)
[2021-04-03 21:52] VITALS: BP 156/92; PULSE 80; RESP 16; O2SAT 94
[2021-04-03 22:07] LABS: Basophils Absolute Auto 0.1 K/mm3 (0.0-0.1); Basophils Percent Auto 0.7 % (0.2-1.2); Eosinophils Absolute Auto 0.3 K/mm3 (0-0.3); Eosinophils Percent Auto 3.5 % (0-4.4); Hematocrit 38.8 % (42.0-52.0); Hemoglobin 12.9 g/dL (14.0-18.0); Immature Granulocyte Absolute 0.03 K/mm3 (0.00-0.031); Immature Granulocyte Percent A 0.4 % (0-0.5); Lymphocytes Absolute Auto 3.11 K/mm3 (0.9-3.2); Lymphocytes Percent Auto 37.5 % (18.3-44.2); Mean Corpuscular HGB Conc 33.2 g/dl (32-36); Mean Corpuscular Hemoglobin 29.4 pg (26-34); Mean Corpuscular Volume 88.4 fl (80-100); Mean Platelet Volume 10.7 fl (7.4-10.4); Monocytes Absolute Auto 0.8 K/mm3 (0.1-0.6); Monocytes Percent Auto 10.1 % (2.6-8.5); Neutrophils Percent Auto 47.8 % (45.5-73.1); Platelet Count Result 245 k/mm3 (150-375); Red Blood Count 4.39 M/mm3 (4.6-6.20); Red Cell Distribution Width 13.3 % (11.5-14.5); White Blood Count 8.3 K/mm3 (4.5-10.0)
[2021-04-03 22:17] LABS: INR 2.5; Partial Thromboplastin Time 41.2 SECONDS (22.3-36.8); Prothrombin Time 26.2 Seconds (11.1-14.7)
[2021-04-03 22:21] VITALS: BP 161/97; PULSE 80; RESP 21; O2SAT 97
[2021-04-03 22:31] VITALS: BP 155/92; PULSE 67; RESP 13; O2SAT 97
[2021-04-03 22:35] LABS: Lactic Acid Reflex 0.8 mmol/L (0.7-2.1)
[2021-04-03 22:38] LABS: Alanine Aminotransferase 21 U/L (4-50); Albumin Level 3.8 g/dL (3.5-5.1); Alkaline Phosphatase 98 U/L (38-126); Anion Gap 7 mmol/L (8-16); Aspartate Amino Transferase 47 U/L (17-59); Bilirubin,Total 0.7 mg/dL (0.2-1.3); Blood Urea Nitrogen 12 mg/dL (9-20); Calcium 8.6 mg/dL (8.4-10.2); Carbon Dioxide 28 mmol/L (22-30); Chloride 104 mmol/L (98-107); Estimated CRCL calculation 98 ml/min; Estimated Glomerular Filt Rate > 60; Glucose 93 mg/dL (65-110); Lipase 36 U/L (23-300); Magnesium 1.9 mg/dL (1.6-2.3); Potassium 4.2 mmol/L (3.4-5.0); Sodium 139 mmol/L (137-145)
[2021-04-03 22:49] LABS: Troponin I < 0.012 ng/mL (0.000-0.034)
--- NOTE | 2021-04-03 23:25 | PC.NURSE ---
Per Lena WILLIS w/ bedside report - pt is in CT at this time. Unable to void for urine sample as of yet. Fluids initiated. Will attempt sample collection upon return from CT.
--- NOTE | 2021-04-03 23:26 | ED.GENADULT ---
HPI - General Adult General Chief complaint: Abdominal Pain Stated complaint: ABD PAIN Time Seen by Provider: 04/03/21 21:28 History of Present Illness HPI narrative: Patient is a 45-year-old gentleman epigastric abdominal pain. The patient reports that he started having pain in the upper parts of his abdomen does radiate into the lower chest. Patient states that it hurts so bad that it makes it hard to breathe the patient states that he recently had a valve replacement is on Coumadin. Patient reports symptoms or not improved by anything nor they worsened by anything. Related Data Home Medications Medication Instructions Recorded Confirmed losartan 50 mg PO DAILY 11/05/20 12/16/20 sodium chloride 1 g PO DAILY 11/05/20 12/16/20 Allergies Allergy/AdvReac Type Severity Reaction Status Date / Time No Known Allergies Allergy Verified 11/13/20 15:39 Review of Systems Review of Systems: A 10 system review of systems was completed on the patient and is negative except for what is stated in the HPI. Nursing and ancillary documentation was reviewed. [facility] Past Medical History Medical History Aortic regurgitation CAD (coronary artery disease) HTN (hypertension), benign Tobacco abuse Family History Family History Other Hypertension Social History Social History Smoking status: Current every day smoker Spiritual care concerns: No Exam Narrative: GENERAL: Well-appearing, well-nourished, and in no acute distress. HEAD: Normocephalic, atraumatic. EYES: PERRLA and EOMI. ENT: Nares clear, no rhinorrhea or epistaxis. Mucous membranes moist. NECK: Supple. CHEST: Clear to auscultation. No respiratory distress. HEART: Regular rate and rhythm. No murmur heard. Normal peripheral pulses. ABDOMEN: Soft, nontender, nondistended, normal active bowel sounds. EXTREMITIES: Normal range of motion. No edema. SKIN: Warm, dry, no rash. NEURO: No focal deficits. Alert and oriented x3. PSYCH: Normal mood and affect. Course Vital Signs Vital signs: Vital Signs Temperature 36.4 C 04/03/21 21:21 Pulse Rate 84 04/03/21 21:21 Respiratory Rate 20 04/03/21 21:21 Blood Pressure 192/104 H 04/03/21 21:21 Pulse Oximetry 97 04/03/21 21:21 Temperature 36.4 C 04/03/21 21:21 Pulse Rate 71 04/04/21 00:05 Respiratory Rate 15 04/04/21 00:05 Blood Pressure 154/89 H 04/04/21 00:05 Pulse Oximetry 98 04/04/21 00:05 Medical Decision Making Vital Signs Vital Signs: Vital Signs Temperature 36.4 C 04/03/21 21:21 Pulse Rate 84 04/03/21 21:21 Respiratory Rate 20 04/03/21 21:21 Blood Pressure 192/104 H 04/03/21 21:21 Pulse Oximetry 97 04/03/21 21:21 Temperature 36.4 C 04/03/21 21:21 Pulse Rate 71 04/04/21 00:05 Respiratory Rate 15 04/04/21 00:05 Blood Pressure 154/89 H 04/04/21 00:05 Pulse Oximetry 98 04/04/21 00:05 Lab Data Result diagrams: 04/03/21 21:59 04/03/21 22:21 Labs: Lab Results 04/03/21 04/03/21 04/03/21 Range/Units 21:59 21:59 21:59 WBC 8.3 (4.5-10.0) K/mm3 RBC 4.39 L (4.6-6.20) M/mm3 Hgb 12.9 L D (14.0-18.0) g/dL Hct 38.8 L (42.0-52.0) % MCV 88.4 (80-100) fl MCH 29.4 (26-34) pg MCHC 33.2 (32-36) g/dl RDW 13.3 (11.5-14.5) % Plt Count 245 D (150-375) k/mm3 MPV 10.7 H (7.4-10.4) fl Immature Gran % (Auto) 0.4 (0-0.5) % Neut % (Auto) 47.8 (45.5-73.1) % Lymph % (Auto) 37.5 (18.3-44.2) % Noble % (Auto) 10.1 H (2.6-8.5) % Eos % (Auto) 3.5 (0-4.4) % Baso % (Auto) 0.7 (0.2-1.2) % Lymph # (Auto) 3.11 (0.9-3.2) K/mm3 Noble # (Auto) 0.8 H (0.1-0.6) K/mm3 Eos # (Auto) 0.3 (0-0.3) K/mm3 Baso # (Auto) 0.1 (0.0-0.1) K/mm3 Abs Immat Gran (auto)
--- NOTE | 2021-04-03 23:27 | PC.NURSE ---
Care turned over to ALBA Duenas. All questions answered at this time.
[2021-04-04 00:05] VITALS: BP 154/89; PULSE 71; RESP 15; O2SAT 98
[2021-04-04 00:49] LABS: Add Urine Microscopic? YES; Appearance Urine Clear (Clear); Bilirubin Urine Negative (Negative); Blood Urine Negative (Negative); Color Urine Yellow (Yellow); Glucose Urine UA Negative (Negative); Ketones Urine Negative (Negative); Leukocyte Esterase Ur Negative LEU/UL (Negative); Mucus Urine Moderate /lpf; Nitrate Urine Negative (Negative); Protein Urine Negative (Negative); RBC Urine 0-2 /hpf (0-2); WBC Urine 0-3 /hpf
[2021-04-04 00:53] LABS: Specific Grav Ur > 1.060 (1.001-1.035)
[2021-04-04 01:11] LABS: SARS-CoV-2 RNA PCR Negative
[2021-04-04 01:18] VITALS: BP 147/94; PULSE 64; RESP 17; O2SAT 96
== END 2021-04-04 01:30 | disposition home or self-care (01) ==
PROVIDERS: Emergency Provider Emergency Medicine
DX: J18.9 Pneumonia, unspecified organism (principal); Z20.822 Contact with and (suspected) exposure to COVID-19; I35.1 Nonrheumatic aortic (valve) insufficiency; I25.10 Atherosclerotic heart disease of native coronary artery without angina pectoris; I10 Essential (primary) hypertension; Z79.01 Long term (current) use of anticoagulants; Z95.2 Presence of prosthetic heart valve; F17.200 Nicotine dependence, unspecified, uncomplicated; R16.1 Splenomegaly, not elsewhere classified; K80.20 Calculus of gallbladder without cholecystitis without obstruction
CPT/HCPCS: 36415; 71275; 74177; 80053; 81001; 83605; 83690; 83735; 84484; 85025; 85610; 85730; 96361; 96374; 96375; 96376; 99284; C9803; J1170; J2405; J7030; Q9967; U0003; U0005

== ENCOUNTER 2021-06-23 18:09 | Emergency (ER) | payer OTHER, SELFPAY ==
[2021-06-23] VITALS (8 sets, daily range): BP systolic 112–151; BP diastolic 69–89; PULSE 65–97; RESP 18; TEMP 36.6; O2SAT 96–100
--- NOTE | ~2021-06-23 | CT_ITS ---
EXAMINATION: CT brain wo con DATE: 06/23/2021 20:09 INDICATION: Dizziness. TECHNIQUE: Computed tomography (CT) of the head was performed without intravenous contrast. The mA wa s adjusted according to patient size. Iterative reconstruction technique was employed. The dose-lengt h product was 605.33 mGy-cm. COMPARISON: None FINDINGS: There is no intracranial hemorrhage, acute infarction, or abnormal intracranial mass lesion . The ventricles are normal in size. The orbits are normal. There is mild mucosal thickening in the p aranasal sinuses. The mastoid air cells are normal. There is right posterior superior scalp soft tiss ue swelling. IMPRESSION: 1. Normal brain. Reviewed, dictated and finalized at location A. IMPRESSION: 1. Normal brain.
--- NOTE | 2021-06-23 19:22 | ED.ANXIETY ---
HPI - Anxiety General Chief Complaint: Anxiety Stated Complaint: Anxiety - panic attack with hyperventilation Time Seen by Provider: 06/23/21 19:22 Source: patient Mode of arrival: EMS Limitations: no limitations History of Present Illness HPI narrative: Patient is a 45-year-old male who presents the ED via EMS with report of anxiety. Patient reports a long history of anxiety and anxiety attacks. He states he used to be on medication for this (effexor) but had been feeling better and has not been on any anxiety medication in several months. Over the last 4 to 6 weeks he reports having increased anxiety, particularly around issues at work. Tonight, he reports he was in his garage with his puppy talking to someone on the phone. He states his puppy wanted to go inside and began barking because of the rain. He then began to feel very anxious. He states the combination of being on the phone with someone and his puppy becoming scared of the rain made him feel very overwhelmed. He is not sure exactly why this made him feel overwhelmed. He took the puppy inside and began walking up the stairs when he began feeling very dizzy and lightheaded. He states he was having difficulty breathing and hyperventilating at that time. He did fall and hit his head against the wall on his stairs, but did not lose consciousness. He then called EMS. He states that soon as the ambulance arrived he felt immediate relief and felt better. He does report he was familiar with the EMS he had been to his house several times for similar anxiety attacks which have presented similarly with dizziness and trouble breathing. Patient does have a history of an NSTEMI and aortic valve replacement in 2020, but he states these symptoms do not feel similar to his HI. He denied having any chest pain or palpitations today. No headache, nausea, vomiting, fever, chills, weakness, vision changes. Patient denies any SI, HI, AVH. Patient is on warfarin due to history of aortic valve replacement. Has not missed any doses. Patient is a former cigarette smoker, but does mention he smoked a cigar tonight. He also had 1 beer and 1 vodka tonic. No drug use. Related Data Home Medications Medication Instructions Recorded Confirmed losartan 50 mg PO DAILY 11/05/20 12/16/20 sodium chloride 1 g PO DAILY 11/05/20 12/16/20 Allergies Allergy/AdvReac Type Severity Reaction Status Date / Time No Known Allergies Allergy Verified 11/13/20 15:39 Review of Systems Review of Systems: CONSTITUTIONAL: Denies fever, chills, or sweats. EYES: Denies visual changes. CARDIOVASCULAR: Denies chest pain, palpitations. RESPIRATORY: Reports shortness of breath and hyperventilation. Denies cough. GASTROINTESTINAL: Denies nausea, vomiting. MUSCULOSKELETAL: Denies back pain. NEUROLOGIC: Reports dizziness, lightheadedness, head injury. Denies LOC, headache, numbness, or weakness. PSYCHIATRIC: Reports anxiety. Denies SI, HI, AVH, depression. All systems reviewed & are unremarkable except as noted in HPI and below PMFSH Past Medical History Medical History Aortic regurgitation CAD (coronary artery disease) HTN (hypertension), benign Hypercholesterolemia Tobacco abuse Surgical History Surgical History H/O aortic valve replacement Family History Family History Other Hypertension Social History Social History Smoking status: Former smoker Tobacco type: cigars Alcohol intake: current Spiritual care concerns: No Exam Narrative: GENERAL: Well appearing, well-nourished, non-toxic, in no acute distress. HEAD: Normocephalic, atraumatic. No scalp tenderness to palpation. EYES: PERRL/EOMI, conjunctivae clear bilaterally. No nystagmus. NECK: Supple. No adenopathy, n
--- NOTE | 2021-06-23 19:59 | ECG_ITS ---
Measurements Intervals [place] Rate: 66 P: 42 FL: 165 QRS: 52 QRSD: 102 T: 50 QT: 412 QTc: 434 Interpretive Statements SINUS RHYTHM NORMAL ECG COMPARED TO ECG 11/06/2020 00:24:30 HEART RATE HAS INCREASED Electronically Signed On 06-24-2021 15:36:39 CDT by Truong Syed M.D.
--- NOTE | 2021-06-23 20:00 | PC.NURSE ---
Pt to imaging at this time.
[2021-06-23] MEDS: SODIUM CHLORIDE 0.9% IV 1,000 ML 999 ML IV CONT (20:31)
[2021-06-23 20:34] LABS: Basophils Absolute Auto 0.1 K/mm3 (0.0-0.1); Basophils Percent Auto 0.7 % (0.2-1.2); Eosinophils Absolute Auto 0.2 K/mm3 (0-0.3); Hematocrit 44.2 % (42.0-52.0); Immature Granulocyte Absolute 0.02 K/mm3 (0.00-0.031); Immature Granulocyte Percent A 0.2 % (0-0.5); Lymphocytes Absolute Auto 2.47 K/mm3 (0.9-3.2); Lymphocytes Percent Auto 27.8 % (18.3-44.2); Mean Corpuscular HGB Conc 33.9 g/dl (32-36); Mean Corpuscular Hemoglobin 29.4 pg (26-34); Mean Corpuscular Volume 86.5 fl (80-100); Mean Platelet Volume 9.8 fl (7.4-10.4); Monocytes Absolute Auto 0.6 K/mm3 (0.1-0.6); Monocytes Percent Auto 7.2 % (2.6-8.5); Neutrophils Absolute Auto 5.5 K/mm3 (1.3-6.7); Neutrophils Percent Auto 62.1 % (45.5-73.1); Platelet Count Result 236 k/mm3 (150-375); Red Blood Count 5.11 M/mm3 (4.6-6.20); Red Cell Distribution Width 14.6 % (11.5-14.5); White Blood Count 8.9 K/mm3 (4.5-10.0)
[2021-06-23 20:36] LABS: Appearance Urine Clear (Clear); Bilirubin Urine Negative (Negative); Blood Urine Negative (Negative); Glucose Urine UA Negative (Negative); Ketones Urine Negative (Negative); Leukocyte Esterase Ur Negative LEU/UL (Negative); Nitrate Urine Negative (Negative); Protein Urine Negative (Negative); Urobilinogen Urine 0.2 mg/dL (<2.0); pH Urine 6.5 (5.0-9.0)
[2021-06-23 20:39] LABS: Add Urine Microscopic? NO; Color Urine Colorless (Yellow)
[2021-06-23 20:55] LABS: Alanine Aminotransferase 17 U/L (4-50); Albumin Level 4.6 g/dL (3.5-5.1); Alkaline Phosphatase 89 U/L (38-126); Anion Gap 10 mmol/L (8-16); Aspartate Amino Transferase 28 U/L (17-59); Bilirubin,Total 0.6 mg/dL (0.2-1.3); Blood Urea Nitrogen 6 mg/dL (9-20); Calcium 8.6 mg/dL (8.4-10.2); Carbon Dioxide 26 mmol/L (22-30); Chloride 103 mmol/L (98-107); Estimated CRCL calculation 114 ml/min; Estimated Glomerular Filt Rate > 60; Glucose 96 mg/dL (65-110); Potassium 3.9 mmol/L (3.4-5.0); Sodium 139 mmol/L (137-145)
[2021-06-23 21:06] LABS: Troponin I < 0.012 ng/mL (0.000-0.034)
[2021-06-23 21:18] LABS: INR 3.3; Prothrombin Time 32.6 Seconds (11.1-14.7)
[2021-06-23 21:19] LABS: Partial Thromboplastin Time 52.5 SECONDS (22.3-36.8)
== END 2021-06-23 22:28 | disposition home or self-care (01) ==
PROVIDERS: Physician Assistant; Emergency Provider Emergency Medicine
DX: R42 Dizziness and giddiness (principal); F41.9 Anxiety disorder, unspecified; I10 Essential (primary) hypertension; I25.10 Atherosclerotic heart disease of native coronary artery without angina pectoris; E78.5 Hyperlipidemia, unspecified; Z87.891 Personal history of nicotine dependence
CPT/HCPCS: 36415; 70450; 80053; 81003; 84484; 85025; 85610; 85730; 93005; 96360; 99284; J7030

== ENCOUNTER 2024-05-19 06:44 | Emergency (ER) | payer OTHER, SELFPAY ==
[2024-05-19] VITALS (21 sets, daily range): BP systolic 128–162; BP diastolic 77–92; PULSE 93–139; RESP 12–31; TEMP 38; O2SAT 91–98
--- NOTE | ~2024-05-19 | XR_ITS ---
EXAMINATION: XR chest 1V portable DATE: 05/19/2024 07:19 INDICATION: Shortness of breath. TECHNIQUE: A single frontal view of the chest was obtained. COMPARISON: Chest 2 views 11/05/2020. FINDINGS: There is no pneumonia, pleural effusion, or pneumothorax. The heart size is normal. Median sternotomy wires are noted. IMPRESSION: 1. No acute cardiopulmonary disease. Reviewed, dictated and finalized at location A. MOTIVE ENG[employer]
--- NOTE | 2024-05-19 06:47 | ECG_ITS ---
Test Date: 2024-05-19 06:49:51 Measurements Intervals [place] Rate: 133 P: 34 CT: 138 QRS: 61 QRSD: 92 T: 38 QT: 289 QTc: 430 Interpretive Statements SINUS TACHYCARDIA DELAYED PRECORDIAL R/S TRANSITION BASELINE ARTIFACT- I, III, AVL, AVF ABNORMAL ECG No previous ECG available for comparison Electronically Signed On 05-19-2024 07:08:[address] SQL DEVELOPER by Mark Powell D.O.
[2024-05-19 06:59] LABS: Basophils Percent Auto 0.4 % (0.2-1.2); Eosinophils Absolute Auto 0.1 K/mm3 (0-0.3); Eosinophils Percent Auto 0.9 % (0-4.4); Hematocrit 48.7 % (42.0-52.0); Hemoglobin 16.6 g/dL (14.0-18.0); Immature Granulocyte Absolute 0.05 K/mm3 (0.00-0.031); Immature Granulocyte Percent A 0.5 % (0-0.5); Lymphocytes Absolute Auto 0.94 K/mm3 (0.9-3.2); Mean Corpuscular HGB Conc 34.1 g/dl (32-36); Mean Corpuscular Hemoglobin 30.8 pg (26-34); Mean Corpuscular Volume 90.4 fl (80-100); Mean Platelet Volume 10.1 fl (7.4-10.4); Monocytes Absolute Auto 1.8 K/mm3 (0.1-0.6); Monocytes Percent Auto 17.1 % (2.6-8.5); Neutrophils Absolute Auto 7.5 K/mm3 (1.3-6.7); Neutrophils Percent Auto 72.1 % (45.5-73.1); Platelet Count Result 195 k/mm3 (150-375); Red Blood Count 5.39 M/mm3 (4.6-6.20); Red Cell Distribution Width 17.3 % (11.5-14.5); White Blood Count 10.5 K/mm3 (4.5-10.0)
[2024-05-19] MEDS: ACETAMINOPHEN 500 MG TABLET 1000 MG PO (07:16)
[2024-05-19] MEDS: SODIUM CHLORIDE 0.9% IV 1,000 ML 999 ML IV CONT (07:16)
[2024-05-19 07:17] LABS: Alanine Aminotransferase 22 U/L (6-50); Albumin Level 4.2 g/dL (3.5-5.1); Alkaline Phosphatase 87 U/L (38-126); Anion Gap 10 mmol/L (4-12); Aspartate Amino Transferase 27 U/L (17-59); Blood Urea Nitrogen 8 mg/dL (9-20); Calcium 8.9 mg/dL (8.4-10.2); Carbon Dioxide 23 mmol/L (22-30); Chloride 103 mmol/L (98-107); Estimated CRCL calculation 129 ml/min; Estimated Glomerular Filt Rate > 60; Glucose 113 mg/dL (65-110); Potassium 4.2 mmol/L (3.4-5.0); Sodium 136 mmol/L (137-145)
--- NOTE | 2024-05-19 07:21 | ED_ITS ---
HPI - General Adult General Chief complaint: Shortness of Breath/Dyspnea Stated complaint: sob Time Seen by Provider: 05/19/24 06:57 History of Present Illness HPI narrative: 48-year-old male present to the emergency department for evaluation for increased shortness of breath. Patient states he began having some symptoms of illness yesterday but approximately 1:00 a.m. had onset shortness of breath. Patient did call EMS and was found to be saturating at 90% on room air. Patient was treated with a DuoNeb EN route and improved to 97% room air. At time of initial evaluation patient was once again saturating at 92% on room air and would patient was placed on oxygen for comfort. Patient does have a history of smoking and continues to smoke. Patient does have history of aortic valve replacement done at [facility] approximately 2022 and patient does take Coumadin. Related Data Home Medications ?Medication ?Instructions ?Recorded ?Confirmed ?Last Taken ?Type losartan 50 mg tablet 50 mg PO DAILY 11/05/20 05/19/24 12/16/20 History sodium chloride 1 gram tablet 1 g PO DAILY 11/05/20 05/19/24 12/16/20 History metoprolol tartrate 25 mg tablet mg 05/19/24 Unknown History warfarin 5 mg tablet mg 05/19/24 Unknown History Allergies Allergy/AdvReac Type Severity Reaction Status Date / Time No Known Allergies Allergy Verified 05/19/24 06:48 Review of Systems 2 Review of Systems: All systems reviewed & are unremarkable except as noted in HPI and below PMFSH Past Medical History Medical History Aortic regurgitation CAD (coronary artery disease) HTN (hypertension), benign Hypercholesterolemia Tobacco abuse Surgical History Surgical History H/O aortic valve replacement Family History Family History Other Hypertension Social History Social History Smoking status: Former smoker Tobacco type: cigars Alcohol intake: current Spiritual care concerns: No Exam 2 Narrative: APPEARANCE: Ill-appearing HEAD: normocephalic, atraumatic. EYES: PERRLA/EOMI, conjunctivae clear. NOSE: Normal no drainage EARS:TMS clear with good light reflex. THROAT: Pharynx clear, no exudate. NECK: Supple. No adenopathy, no masses. RESPIRATORY: Congestion right CARDIOVASCULAR: Sinus tachycardia ABDOMINAL: Soft, nontender, nondistended, normal bowel sounds MUSCULOSKELETAL: Moves all extremities. Strength/ROM intact, No edema, No calf tenderness. NEURO: Alert. Cranial nerves II through XII intact. Good gait. Good coordination SKIN: Warm, dry. Normal Color Course Vital Signs Vital signs: Vital Signs Temperature 100.4 F H 05/19/24 06:43 Pulse Rate 135 H 05/19/24 06:43 Respiratory Rate 31 H 05/19/24 06:43 Blood Pressure 162/90 H 05/19/24 06:43 Pulse Oximetry 94 05/19/24 06:43 Oxygen Delivery Room Air 05/19/24 06:43 Temperature 100.4 F H 05/19/24 06:43 Pulse Rate 93 05/19/24 09:51 Respiratory Rate 25 H 05/19/24 09:51 Blood Pressure 131/78 05/19/24 09:00 Pulse Oximetry 93 05/19/24 09:51 Oxygen Delivery Room Air 05/19/24 06:55 Medical Decision Making MDM Narrative Medical decision making narrative: 48-year-old male presents emergency department for evaluation for increased shortness of breath. Patient was treated with a L of IV fluid, p.o. Tylenol. Patient did have a low-grade fever with a leukocytosis of 10.5 and a stable hemoglobin of 16.6. Patient has no significant abnormalities on his CMP patient was negative for influenza RSV and for COVID, chest x-ray shows no acute cardiopulmonary abnormality. Patient did feel improved after breathing treatment. Patient was tachycardic upon arrival emergency department both treated with Tylenol and IV fluids. Patient's heart rate improved to the mid 90s. Patient was able to ambulate in the emergency department with a pulse ox ranging from 90 and up. Patient was offered admission for suspected pneumonia/COPD and patient declined. Patient reports that his shortness breath was improved and patient strongly prefers to be discharged home. Patient was treated with a dose of IV Solu-Medrol in the emergency department and will be started on prednisone, azithromycin and Augmentin for home. Differential Diagnosis Differential Diagnosis: COVID, RSV, influenza, pneumonia, COPD Vital Signs Vital Signs: Vital Signs Temperature 100.4 F H 05/19/24 06:43 Pulse Rate 135 H 05/19/24 06:43 Respiratory Rate 31 H 05/19/24 06:43 Blood Pressure 162/90 H 05/19/24 06:43 Pulse Oximetry 94 05/19/24 06:43 Oxygen Delivery Room Air 05/19/24 06:43 Temperature 100.4 F H 05/19/24 06:43 Pulse Rate 93 05/19/24 09:51 Respiratory Rate 25 H 05/19/24 09:51 Blood Pressure 131/78 05/19/24 09:00 Pulse Oximetry 93 05/19/24 09:51 Oxygen Delivery Room Air 05/19/24 06:55 Lab Data Lab results reviewed: Yes I reviewed the patient's lab results. 05/19/24 06:50 05/19/24 06:50 Labs: Lab Results 05/19/24 05/19/24 Range/Units 06:50 08:30 WBC 10.5 H (4.5-10.0) K/mm3 RBC 5.39 (4.6-6.20) M/mm3 Hgb 16.6 (14.0-18.0) g/dL Hct 48.7 (42.0-52.0) % MCV 90.4 (80-100) fl MCH 30.8 (26-34) pg MCHC 34.1 (32-36) g/dl RDW 17.3 H (11.5-14.5) % Plt Count 195 (150-375) k/mm3 MPV 10.1 (7.4-10.4) fl Immature Gran % (Auto) 0.5 (0-0.5) % Neut % (Auto) 72.1 (45.5-73.1) % Lymph % (Auto) 9.0 L (18.3-44.2) % [place] % (Auto) 17.1 H (2.6-8.5) % Eos % (Auto) 0.9 (0-4.4) % Baso % (Auto) 0.4 (0.2-1.2) % Lymph # (Auto) 0.94 (0.9-3.2) K/mm3 [place] # (Auto) 1.8 H (0.1-0.6) K/mm3 Eos # (Auto) 0.1 (0-0.3) K/mm3 Baso # (Auto) 0.0 (0.0-0.1) K/mm3 Abs Immat Gran (auto) 0.05 H (0.00-0.031) K/mm3 Absolute Neuts (auto) 7.5 H (1.3-6.7) K/mm3 Absolute Nucleated RBC 0.000 (0.0-0.012) K/mm3 Nucleated RBC % 0.0 (0.0-0.2) % PT 25.6 H (11.1-14.7) Seconds INR 2.3 APTT 54.6 H (22.3-36.8) Seconds Sodium 136 L (137-145) mmol/L Potassium 4.2 (3.4-5.0) mmol/L Chloride 103 (98-107) mmol/L Carbon Dioxide 23 (22-30) mmol/L Anion Gap 10 (4-12) mmol/L BUN 8 L (9-20) mg/dL Creatinine 0.67 L (0.7-1.3) mg/dL Estim Creat Clear Calc 129 ml/min Estimated GFR > 60 (59 - ) Glucose 113 H (65-110) mg/dL Calcium 8.9 (8.4-10.2) mg/dL Total Bilirubin 1.0 (0.2-1.3) mg/dL AST 27 (17-59) U/L ALT 22 (6-50) U/L Alkaline Phosphatase 87 (38-126) U/L Total Protein 8.0 (6.3-8.2) g/dL Albumin 4.2 (3.5-5.1) g/dL Influenza A (RT-PCR) Negative (Negative) Influenza B (RT-PCR) Negative (Negative) RSV (RT-PCR) Negative (Negative) SARS-CoV-2 RNA (RT-PCR) Negative (Negative) Imaging Data Radiologist's impression: Impressions Chest X-Ray 05/19/24 07:26 IMPRESSION: 1. No acute cardiopulmonary disease. Discharge Plan Discharge Clinical Impression: COPD exacerbation, Pneumonia Patient Disposition: Home, Self-Care Condition: Stable Instructions: Antibiotic Form, How to Stop Smoking (ED), COPD (Chronic Obstructive Pulmonary Disease) (DC), Community Acquired Pneumonia (ED) Additional Instructions: You were offered admission for your low oxygen but you prefer to be discharged home. Quit smoking. Antibiotics as directed until completed. Prednisone as directed until completed. If you have any worsening symptoms then please call or return to the emergency department. Have close follow-up with her primary care physician. You will need to have your INR recheck to the next few days as the antibiotics could significantly alter your INR. Patient Language: Tajik Prescriptions: New azithromycin 250 mg tablet See Rx Instructions .ROUTE .COMPLEX Qty: 6 0RF Rx Instructions: For 250 mg dose pack: take 500 mg today (day 1), then 250 mg for 4 days (days 2-5) albuterol sulfate 90 mcg/actuation HFA aerosol inhaler 1 puff inhalation QID Qty: 6.7 0RF amoxicillin-pot clavulanate 875-125 mg tablet 1 tablet PO Q12H 7 Days Qty: 14 0RF prednisone 50 mg tablet 50 mg PO DAILY Qty: 5 0RF No Action losartan 50 mg tablet 50 mg PO DAILY sodium chloride 1 gram tablet 1 g PO DAILY aspirin [Children's Aspirin] 81 mg Tablet,Chewable 81 mg PO DAILY@0800 30 Days Qty: 30 3RF atorvastatin 40 mg tablet 40 mg PO DAILY Qty: 30 3RF warfarin 5 mg tablet metoprolol tartrate 25 mg tablet Follow-up/Referrals: PHYSICIAN,AERONAUTICAL TEST ENGINEER [Non-Staff] -
--- OUTSIDE RECORDS SUMMARY | 2024-05-19 07:37 | XMS_ITS | Clinical Summary ---
Author Organization [facility] Address [address], [facility] [address] [place] [address] Phone Care Team Providers Care Buccaro Name Role Phone So Huber APRN Primary Care Provider John Mayes DO Unavailable [phone] Social History Tobacco Use Types Packs/Day Years Used Date Smoking Tobacco: Never Assessed Sex and Gender Information Value Date Recorded Sex Assigned at Not on file Legal Sex Male 10:04 AM CDT Gender Identity Not on file Sexual Orientation Not on file Plan of Treatment Health Maintenance Due Date Last Done Comments Hepatitis C Virus (HCV) Screening 1974 TdaP Immunization 1974 Hepatitis B Immunization (1 of 3 - 19+ 3-dose series) 1993 Colonoscopy 08/26/2019 Colorectal Cancer Screening 08/26/2019 Influenza Immunization (#1) 2023 SARS-COV-2 Immunization ( season) 2023 Respiratory Syncytial Virus (RSV) Immunization (Adult) (1 - 1-dose 75+ series) 2049 Meningococcal Immunization (ACWY) Aged Out No longer eligible based on patient's age to complete this topic Pneumococcal Immunization Combined Aged Out No longer eligible based on patient's age to complete this topic Rotavirus Immunization Aged Out No lo nger eligible based on patient's age to complete this topic Insurance MEDICAID [place] Care Teams Buccaro Relationship Specialty Start Date End Date So Huber APRN [address] [place] [address] PCP - General Family Medicine 11/05/20 John Mayes DO [address] [place] [address] Consulting Physician Oncology 11/05/20
--- OUTSIDE RECORDS SUMMARY | 2024-05-19 07:37 | XMS_ITS | Clinical Summary ---
Author Organization [facility] Address [address] [place] [id number] Care Team Providers Care Reporting Lead Name Role Phone Ashely Magana Tash [facility] Primary Care Provid er Allergies No known active allergies Medications losartan 50 MG tabletIndications :Essential hypertension Take 1 tablet (50 mg total) by mouth daily. 30 tablet 2 1 Active venlafaxine XR 150 MG 24 hr capsuleIndication s:Anxiety Take 1 capsule (150 mg total) by mouth daily. 30 capsule 2 1 Active Active Problems Problem Noted Date Diagnosed Date Polycythemia 10/30/2020 Hyponatremia 10/17/2020 Anxiety 11/01/2019 Essential hypertension 11/01/2019 Mild intermittent asthma without complication (H HS/HCC) 11/01/2019 Family History Medical History Relation Comments Hypertension Mother Relation Status Comments Mother Social History Tobacco Use Types Packs/Day Years Used Date Smoking Tobacco: Every Day Cigarettes 0.5 15 Smokeless Tobacco: Never Alcohol Use Standard Drinks/Week Comments Yes 23.3 (1 standard drink = 0.6 oz pure alcohol) AUDIT-C Answer Date Recorded Q1: How often do you have a drink containing alc ohol? 2-3 times a week 11/01/2019 Q2: How many drinks containi ng alcohol do you have on a typical day when you are drinking? 5 or 6 11/01/2019 Q3: How often do you have si x or more drinks on one occasion? Weekly 11/01/2019 PHQ-2 Answer Date Recorded PHQ-2 Score - If the patient scores above 3, please move on to questions 3-9 0 10/30/2020 Sex and Gender Information Value Date Recorded Sex Assigned at Not on file Legal Sex Male 10:02 AM CDT Gender Identity Not on file Sexual Orientation Not on file Last Filed Vital Signs Vital Sign Reading Time Taken Comments Blood Pressure 134/80 10/30/2020 12:32 PM CDT Pulse 98 10/30/2020 12:32 PM CDT Temperature 36.5 C (97.7 F) 10/30/2020 12:32 PM CDT Respiratory Rate 20 10/30/2020 12:32 PM CDT Oxygen Saturation 97% 10/30/2020 12:32 PM CDT Inhaled Oxygen Concentration - - Weight 80.3 kg (177 lb) 10/30/2020 12:32 PM CDT Height 182.9 cm (6') 10/30/2020 12:32 PM CDT Body Mass Index 24.01 10/30/2020 12:32 PM CDT Plan of Treatment Health Maintenance Due Date Last Done Comments Colorectal Cancer Screening Colonoscopy (10 Years) 1974 Annual Physical 1977 Pneumococcal Vaccine: Pediat rics (0 to 5 Years) and At-Risk Patients (6 to 64 Years) (1 of 2 - PCV) 1980 Hepatitis C 1992 DTaP, Tdap and Td Vaccines ( 1 - Tdap) 1993 Hepatitis B Vaccines (1 of 3 - 19+ 3-dose series) 1993 COVID-19 Vaccine (2023-2 5 season) 2023 Influenza Adult (#1) 2023 Meningococcal B Vaccine Aged Out No l onger eligible based on patient's age to complete this topic Meningococcal Vaccine Aged Out No chad edgardo eligible based on patient's age to complete this topic RSV Immunizations Under 20 Months Aged Out No longer eligible based on patient's age to complete this topic Insurance [employer] Advance Directives * Full Code (Latest Code Status on File) Date Activated Date Inactivated Comments 10/17/2020 11:37 PM 10/19/2020 5:12 PM Care Teams Reporting Lead Relationship Specialty Start Date End Date Ashely Magana FNP- [address] [place] [address] PCP - General Nurse Practitioner Family 05/25/22
[2024-05-19 08:26] LABS: Influenza A QL RT-PCR Negative (Negative); Influenza B QL RT-PCR Negative (Negative); RSV RNA, RT-PCR Negative (Negative); SARS-CoV-2 RNA PCR Negative (Negative)
[2024-05-19 08:56] LABS: INR 2.3; Prothrombin Time 25.6 Seconds (11.1-14.7)
[2024-05-19 08:57] LABS: Partial Thromboplastin Time 54.6 Seconds (22.3-36.8)
[2024-05-19] MEDS: methylPREDNISolone SOD SUCC 125 MG VIAL IV PUSH (09:07)
[2024-05-19] MEDS: AZITHROMYCIN 250 MG TABLET 500 MG PO (10:04)
[2024-05-19] MEDS: AMOXICILLIN/CLAVULANATE K 875-125 MG TAB 1 TABLET PO (10:04)
== END 2024-05-19 10:19 | disposition home or self-care (01) ==
PROVIDERS: Emergency Medicine; Emergency Provider Emergency Medicine
DX: J44.1 Chronic obstructive pulmonary disease with (acute) exacerbation (principal); J18.9 Pneumonia, unspecified organism; Z95.2 Presence of prosthetic heart valve; I25.10 Atherosclerotic heart disease of native coronary artery without angina pectoris; I10 Essential (primary) hypertension; E78.00 Pure hypercholesterolemia, unspecified; Z87.891 Personal history of nicotine dependence; Z20.822 Contact with and (suspected) exposure to COVID-19
CPT/HCPCS: 36415; 71045; 80053; 85025; 85610; 85730; 87637; 93005; 96361; 96374; 99284; A9270; J2919; J7030